=== PATIENT | male | born 1955 | race Caucasian/White ===

== ENCOUNTER → 2017-01-09 | Outpatient (CLI) | payer OTHER ==
--- NOTE | ~2017-01-09 | 2DMMODE ---
[facility] [address] [place] [address] 2 D/M-MODE ECHOCARDIOGRAM Name: RACHELLEGOKUL SUBRAMANIAN Room #: REG CL [facility]#: [id number] Admission: 01/09/17 Attend Phys: Physician not on s Discharge: Date of : 51 Date of Service: 01/09/17 1106 Report #: [id number] THIS REPORT FOR: //name// APPROVED REPORT Study performed: 01/09/2017 09:07:20 EXAM: Comprehensive 2D, Doppler, and color-flow Echocardiogram Patient Location: Out-Patient Blood Pressure: 139/97 mmHg HR: 99 bpm Rhythm: Atrial Fibrillation Other Information Study Quality: Adequate Indications Atrial Fibrillation 2D Dimensions RVDd: 41.42 mm LVEF(%): 54.90 (>50%) IVSd: 16.31 (7-11mm) LVOT Diam: 25.25 (18-24mm) LVDd: 46.88 mm PWd: 15.19 (7-11mm) Ascending Aorta: 46.48 mm LVDs: 33.54 (25-40mm) Aortic Root: 48.42 mm Rincon's LVEF: 54.90 % Volumes Left Atrial Volume (Systole) Single Plane 4CH: 128.42 mL Single Plane 2CH: 139.33 mL LA ESV Index: 56.00 mL/m2 Aortic Valve AoV Peak Dony.: 1.38 m/s AO Peak Gr.: 7.88 mmHg LV Max P.70 mmHg LV Max: 0.94 m/s Mitral Valve MV Decel. Time: 146.17 ms MV E Max Dony.: 1.25 m/s Pulmonary Valve [facility] [address] [place] [address] 2 D/M-MODE ECHOCARDIOGRAM Name: GOKUL BUSH [facility]: [id number] Admission: 01/09/17 Attend Phys: Physician not on s Discharge: Date of : 51 Date of Service: 01/09/17 1106 Report #: [id number] PV Peak Dony.: 0.61 m/s PV Peak Gr.: 1.52 mmHg Tricuspid Valve RAP Estimate: 5.00 mmHg Left Ventricle The left ventricle is normal size. There is normal LV segmental wall motion. Moderate concentric left ventricular hypertrophy. Left ventricular systolic function is normal. LVEF is 55%. This study is not technically sufficient to allow evaluation of the LV diastolic function. Right Ventricle The right ventricle is normal size. The right ventricular systolic function is normal. Atria Left atrium is dilated. The right atrium size is normal. Aortic Valve The Aortic valve is sclerotic. Mild aortic regurgitation. There is no aortic valvular stenosis. Mitral Valve The mitral valve is normal in structure. No mitral regurgitation. Tricuspid Valve The tricuspid valve is normal in structure. There is no tricuspid valve regurgitation noted. Pulmonic Valve The pulmonary valve is normal in structure. Trace pulmonic regurgitation. 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 IVC is normal in size and collapses >50% with inspiration. Pericardium There is no pericardial effusion. <Conclusion> Left ventricular systolic function is normal. LVH. There is normal LV segmental wall motion. LVEF is 55%. [facility] [place] [address] 2 D/M-MODE ECHOCARDIOGRAM Name: GOKUL BUSH Room #: REG [facility]#: [id number] Admission: 01/09/17 Attend Phys: Physician not on s Discharge: Date of : 51 Date of Service: 01/09/171105 Report #: [id number] The Aortic valve is sclerotic, no stenosis. Mild regurgitation. The mitral valve is normal in structure. No mitral regurgitation. Aortic root is dilated at 4.8cm. 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 There is no pericardial effusion. <ELECTRONICALLY SIGNED> By: Vince Phelps MD, [facility] 01/09/176 05 05 Vince Phelps MD, FACC /INF
== END ==
LOC: CV 07:19
DX: I48.91 Unspecified atrial fibrillation (principal); R00.1 Bradycardia, unspecified